=== PATIENT | female | born 1990 | race Caucasian/White ===

== ENCOUNTER 2017-09-13 01:34 | Emergency (ER) | payer SELFPAY ==
[~2017-09-13] VITALS: Ht 162.6 cm; Wt 59.0 kg
[2017-09-13 01:50] VITALS: BP 130/72
[2017-09-13] MEDS ORDERED: PREDNISONE20 MG ORAL (01:58)
[2017-09-13] MEDS ORDERED: IBUPROFEN600 MG ORAL (01:58)
[2017-09-13] MEDS ORDERED: TAMIFLU75 MG ORAL (01:58)
--- NOTE | 2017-09-13 01:59 | Emergency Room Report ---
History of Present Illness General Chief Complaint: Flu Like Symptoms Source: Patient Present Illness [facility] This is a 26-year-old transgender female who presents with chief complaint fever chills/influenza-like illness. Onset for last 2-3 days. Friends have been diagnosed with influenza. Also has a history of asthma and was wheezing earlier today. Took a breathing treatment prior to arrival. Better after over- the-counter medication. No nausea no vomiting. Fever is low-grade. Coughing is productive of phlegm. Allergies: Coded Allergies: No Known Allergies (Unverified , 09/13/17) Patient History Past Medical History: see triage record, old chart reviewed, asthma Past Surgical History: none Pertinent Family History: none Social History: Denies: smoking Last Menstrual Period: unk Now: No Immunizations: other Reviewed Nursing Documentation: PMH: Agreed, PSxH: Agreed Nursing Documentation-PMH Hx Asthma: Yes Review of Systems Constitutional: Reports: fever, malaise Eye: Denies: eye pain, blurred vision ENT: Reports: nose congestion, throat pain Respiratory: Reports: cough, shortness of breath, wheezing Cardiovascular: Denies: chest pain, palpitations Gastrointestinal: Denies: abdominal pain, diarrhea, nausea, vomiting Musculoskeletal: Denies: back pain, joint pain Skin: Denies: rash Neurological: Denies: headache, numbness Endocrine: Denies: increased thirst, increased urine Hematologic/Lymphatic: Denies: easy bruising All Other Systems: negative except mentioned in HPI Physical Exam Vital Signs Date Time Temp Pulse Resp B/P (MAP) Pulse Ox O2 Delivery O2 Flow Rate FiO2 09/13/17 01:41 100.2 97 12 132/73 98 Room Air vitals low-grade fever Sp02 EP Interpretation: reviewed, normal General Appearance: well appearing, no apparent distress, alert Head: normocephalic, atraumatic Eyes: bilateral eye PERRL, bilateral eye EOMI ENT: hearing grossly normal, normal pharynx Neck: full range of motion, supple, no meningismus Respiratory: chest non-tender, lungs clear, normal breath sounds Cardiovascular #1: regular rate, rhythm, no murmur Gastrointestinal: normal bowel sounds, non tender, no mass, no organomegaly, no bruit, non-distended Musculoskeletal: back normal, gait/station normal, normal range of motion Psychiatric: mood/affect normal Skin: warm/dry Medical Decision Making Diagnostic Impression: Primary Impression: Influenza-like symptoms ER Course Patient with influenza-like illness. Most likely viral in nature. Because of his asthma history will put him on Tamiflu. No evidence of pneumonia, PE, dissection or other bacterial infection. We'll discharge home. Last Vital Signs Date Time Temp Pulse Resp B/P (MAP) Pulse Ox O2 Delivery O2 Flow Rate FiO2 09/13/17 01:41 100.2 97 12 132/73 98 Room Air Status: unchanged Disposition: HOME, SELF-CARE Condition: Stable Scripts Ibuprofen* (MOTRIN*) 600 Mg Tablet 600 MG ORAL THREE TIMES A DAY, #30 TAB 0 Refills Prov: JANICE ENAMORADO M.D. 09/13/17 Oseltamivir Phosphate (Tamiflu) 75 Mg Capsule 75 MG ORAL TWICE A DAY, #10 CAP Prov: JANICE ENAMORADO M.D. 09/13/17 Prednisone* (PREDNISONE*) 20 Mg Tablet 60 MG ORAL DAILY, #15 TAB Prov: JANICE ENAMORADO M.D. 09/13/17 Referrals: NOT CHOSEN [facility]/,REFERRING (PCP) Additional Instructions: Followup with your DrJorge in 7 days. Return if symptom worsen. Increase fluids. JANICE ENAMORADO M.D. Sep 13, 2017 01:59
[2017-09-13 02:03] VITALS: BP 130/72
== END 2017-09-13 02:03 | disposition home or self-care (01) ==
LOC: EMR 01:45
DX: J11.1 Influenza due to unidentified influenza virus with other respiratory manifestations (principal); J45.909 Unspecified asthma, uncomplicated
CPT/HCPCS: 99283